=== PATIENT | female | born 1975 | race Caucasian/White ===

== ENCOUNTER → 2016-10-06 | Outpatient (CLI) | payer OTHER | LOC: BMCIMAGING 13:10 | PROVIDERS: ATTEND Internal Medicine | DX: Z12.31 Encounter for screening mammogram for malignant neoplasm of breast (principal) | CPT/HCPCS: G0202 ==

== ENCOUNTER 2017-04-18 15:44 | Emergency (ER) | payer OTHER ==
[2017-04-18 15:54] VITALS: TEMP 97.7
--- NOTE | 2017-04-18 16:30 | EDPHY ---
H & P Time Seen by Provider: 04/18/17 16:05 HPI/ROS: CHIEF COMPLAINT: Rib pain HISTORY OF PRESENT ILLNESS: 41-year-old female presents to the emergency department with severe right-sided rib pain. The patient was diagnosed with influenza on . She has had an ongoing cough with this for the last few weeks. She saw her primary care provider last week because she was having some pain in her ribs. She was treated with a taper dose of oral prednisone. She finished this medication yesterday and today she feels that the pain is acutely worse. She is worried that she has either displaced or potentially "cracked "a rib. She has pain with movement. She also has pain with movement even of her right upper extremity. She feels short of breath only because it is so painful for her to breathe deeply. Denies a headache. Denies neck or back pain. Denies abdominal pain. She did take ibuprofen earlier this morning with some relief but now she feels that it has worn off. REVIEW OF SYSTEMS: Constitutional: No fever, no chills. Eyes: No double or blurry vision. ENT: No sore throat. Respiratory: As above. Does feel that the cough has improved. Cardiac: No chest pain. Gastrointestinal: No abdominal pain, vomiting or diarrhea. Genitourinary: No dysuria. Musculoskeletal: No neck or back pain. Skin: No rashes. Neurological: No headache. 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 97% on room air, 151/85, heart rate 60 , respirations 18, afebrile. Eyes: Pupils equal and round. Extraocular motions are all intact. ENT: Mouth: Mucous membranes moist. Respiratory: No wheezing, rhonchi, or rales, lungs are clear to auscultation. Reproducible pain with palpation to the right anterior chest wall just below the right breast. No palpable crepitus or other bony abnormality. No retractions. No obvious respiratory distress. Cardiovascular: Regular rate and rhythm. Gastrointestinal: Abdomen is soft and nontender, no masses, no rebound or guarding, bowel sounds normal. Neurological: Alert and oriented x 3, cranial nerves II through XII grossly intact Skin: Warm and dry, no rashes. Musculoskeletal: Nontender to palpate along the cervical, thoracic or lumbar spine. Neck is supple. Extremities: Full range of motion and no peripheral edema. Psychiatric: Patient is oriented X 3, there is no agitation. Constitutional: Initial Vital Signs Temperature (C) 36.5 C 04/18/17 15:52 Heart Rate 60 04/18/17 15:52 Respiratory Rate 18 04/18/17 15:52 Blood Pressure 151/85 H 04/18/17 15:52 O2 Sat (%) 97 04/18/17 15:52 O2 Delivery Mode Room Air Allergies/Adverse Reactions: No Known Allergies Allergy (Verified 04/18/17 15:51) Home Medications: Medication Instructions Recorded Lexapro 04/18/17 Lidocaine 5% [Lidoderm 5% Patch 1 ea TD DAILY #5 patch 04/18/17 (*)] oxyCODONE/APAP 5/325 [Percocet 1 - 2 tab PO Q4-6PRN PRN #15 tab 04/18/17 5/325] Medical Decision Making - Diagnostics Imaging Results: Imaging Impressions Chest X-Ray 04/18/17 16:23 Impression: Normal. No pneumonia. Imaging: I viewed and interpreted images myself ED Course/Re-evaluation: 41-year-old female presents to the emergency department with right-sided chest wall pain. Pain is worse with movement as well as palpation. She is 98% on room air. I doubt this patient has pulmonary embolism. Her pain is reproducible with palpation as well as movement. Chest x-ray has been ordered to rule out possible pneumothorax. Chest x-ray was unremarkable. Clinically I think this patient likely has costochondritis. She was encouraged to take big deep breaths. She will return if she feels short of breath. Patient was encouraged to use ibuprofen 600 mg every 8 hr as needed for pain. She was also encouraged to use lidocaine patches. She was given a prescription for Percocet for severe pain. She was encouraged to take big deep breaths. Activity as tolerated. Differential Diagnosis: Including but not limited to costochondritis, pleurisy, pneumonia, pneumothorax , rib fracture - Data Points Medications Given: Discontinued Medications Ibuprofen (Motrin) 600 mg PO EDNOW ONE Stop: 04/18/17 16:32 Last Admin: 04/18/17 16:45 Dose: 600 mg Departure - Departure Disposition: Home, Routine, Self-Care Clinical Impression: Costochondritis, acute Condition: Good Instructions: Costochondritis (ED) Additional Instructions: Ibuprofen 600mg every 8 hours for pain with food. Percocet for severe pain as directed. Lidocaine patches as directed. Please be sure to remove these after 12 hr. Deep breaths. Return if you develop shortness of breath, worsening pain , or if you feel worse in any way. Referrals: Nancy Fernández MD [Primary Care Provider] - As per Instructions Prescriptions: Lidocaine 5% [Lidoderm 5% Patch (*)] 1 ea TD DAILY #5 patch oxyCODONE/APAP 5/325 [Percocet 5/325] 1 - 2 tab PO Q4-6PRN PRN #15 tab PRN Reason: For Moderate To Severe Pain
[2017-04-18] MEDS ORDERED: IBUPROFEN 600 MG TAB PO ONE (16:31)
[2017-04-18 17:22] VITALS: BP 136/78; PULSE 67; RESP 16; O2SAT 95
== END 2017-04-18 17:22 | disposition home or self-care (01) ==
DX: M94.0 Chondrocostal junction syndrome [Tietze] (principal)

== ENCOUNTER → 2017-05-02 | Outpatient (CLI) | payer OTHER | LOC: FIMAGING 17:38 | PROVIDERS: ATTEND Internal Medicine | DX: S69.91XA Unspecified injury of right wrist, hand and finger(s), initial encounter (principal) ==